=== PATIENT | female | born 1955 | race Caucasian/White ===

== ENCOUNTER 2023-03-31 14:46 | Emergency (ER) | payer OTHER, MEDICARE ==
[~2023-03-31] VITALS: Ht 162.6 cm; Wt 46.3 kg
[2023-03-31] MEDS ORDERED: TRAZ50 (16:10)
[2023-03-31] MEDS ORDERED: PROM25 (16:10)
[2023-03-31] MEDS ORDERED: Norco 5-325 Ta1 EACH (16:10)
[2023-03-31] MEDS ORDERED: OMEP20ER (16:11)
[2023-03-31] MEDS ORDERED: TIZA4 (16:11)
[2023-03-31] MEDS ORDERED: PARO30 (16:11)
[2023-03-31 17:58] VITALS: BP 117/73
== END 2023-03-31 18:41 | disposition home or self-care (01) ==
LOC: ER 14:46
DX: S00.81XA Abrasion of other part of head, initial encounter (principal); S00.211A Abrasion of right eyelid and periocular area, initial encounter; S01.01XA Laceration without foreign body of scalp, initial encounter; C25.9 Malignant neoplasm of pancreas, unspecified; R18.8 Other ascites; W01.0XXA Fall on same level from slipping, tripping and stumbling without subsequent striking against object, initial encounter
CPT/HCPCS: 70450; 72125; 99283-25